=== PATIENT | female | born 1955 | race Caucasian/White ===

== ENCOUNTER 2018-04-17 17:30 | Emergency (ER) | payer OTHER ==
--- NOTE | 2018-04-17 17:36 | EDPHY ---
H & P Time Seen by Provider: 04/17/18 17:35 HPI/ROS: CHIEF COMPLAINT: Left shoulder pain post fall cross country skiing HISTORY OF PRESENT ILLNESS: 62-year-old year female arrives via ambulance, not a trauma activation, complaining of isolated left shoulder pain after she was cross-country skiing, sustained a mechanical fall onto her left shoulder. Pain is reproducible palpation range of motion. No prior history of injury. Denies : Paresthesia, head injury, midline C-spine pain, back pain, chest pain, dyspnea. PRIMARY CARE PROVIDER: REVIEW OF SYSTEMS: 10 systems reviewed and negative with the exception of the elements mentioned in the history of present illness PAST MEDICAL/SURGICAL HISTORY: no anticoagulant use, no relevant medical/ surgical history SOCIAL HISTORY: denies alcohol use at time of incident PHYSICAL EXAM 1) GENERAL: Well-developed, well-nourished, alert and oriented. Appears uncomfortable Answering questions appropriately. 2) HEAD: Normocephalic, atraumatic 3) HEENT: Pupils equal, round, reactive to light bilaterally. Negative Horners. Nasopharynx, oropharynx, clear. No deformity or angulation of nose. No septal hematoma. No rhinorrhea. No oral trauma. Ears bilaterally with normal tympanic membranes. No hemotympanum. No fluid or blood in the external auditory canal. No raccoon eyes. No Lackey sign. Teeth are normally aligned with no gross malocclusion, TMJ bilaterally nontender, facial bones nontender including the zygomatic arch, maxilla mandible. 4) NECK: No cervical collar is on. Posterior cervical spine is nontender, no stepoff, no effusion. Full range of motion which does not elicit any midline cervical spine pain, no posterior midline tenderness, no step-off. Cervical collar is on.Cervical collar is removed while holding inline traction and patient is unable to completely differentiate between true midline pain versus just lateral of midline pain.Cervical collar is replaced at that point.and patient has no complaints of midline cervical pain, no effusion noted, trachea midline, no JVD. 5) LUNGS: Clear to auscultation bilaterally, no wheezes, no rhonchi, no retractions. No obvious signs of trauma. No chest wall pain. No flaring, no grunting. Moving symmetrically. No crepitus. 6) HEART: [Regular rate and rhythm, 7) ABDOMEN: No guarding, no rebound, no focal tenderness, no peritoneal signs, no signs of trauma, no ecchymosis 8) MUSCULOSKELETAL: Left upper extremity: Guarding shoulder, normal anatomic landmarks, tender to palpation proximal humerus and shoulder. Intact skin. No step-off. Soft compartments throughout. Radial ulnar median nerve function intact bilaterally. No axillary nerve dysfunction. Otherwise, Moving all extremities, no focal areas of tenderness, no obvious trauma. 9) BACK: No midline vertebral tenderness, no fluctuance, no step-off, no obvious trauma, no visual or palpable abnormality. 10) SKIN: No laceration. No abrasion DIFFERENTIAL DIAGNOSIS: In no particular order including but not limited to fracture, sprain, strain, dislocation Constitutional: Initial Vital Signs Temperature (C) 36.9 C 04/17/18 17:35 Heart Rate 60 04/17/18 17:35 Respiratory Rate 16 04/17/18 17:35 Blood Pressure 144/81 H 04/17/18 17:35 O2 Sat (%) 96 04/17/18 17:35 O2 Delivery Mode Room Air O2 (L/minute) 2 Allergies/Adverse Reactions: azithromycin Allergy (Verified 04/17/18 17:40) Home Medications: Medication Instructions Recorded Axumin 04/17/18 Hydrocodone/APAP 5/325 [[place] 1 tab PO Q6 PRN #10 tab 04/17/18 5/325 (RX)] Promethazine HCl [Phenergan] 25 mg PO Q6 #10 tab 04/17/18 Rosuvastatin Calcium [Crestor] 04/17/18 MDM/Departure - MDM Medications Given: Discontinued Medications Hydrocodone Bitart/Acetaminophen ([place] 5/325mg Prepack#6) 1 btl TAKEHOME EDNOW ONE Stop: 04/17/18 20:02 Last Admin: 04/17/18 20:05 Dose: 1 btl Haloperidol Lactate (Haldol Injection) 2.5 mg IVP EDNOW ONE Stop: 04/17/18 18:28 Last Admin: 04/17/18 18:36 Dose: 2.5 mg Hydromorphone HCl (Dilaudid) 0.5 mg IVP EDNOW ONE Stop: 04/17/18 17:43 Last Admin: 03/10/19 17:51 Dose: 0.5 mg Sodium Chloride (Ns) 1,000 mls @ 0 mls/hr IV EDNOW ONE; Wide Open PRN Reason: Protocol Stop: 04/17/18 17:57 Last Admin: 04/17/18 17:59 Dose: 1,000 mls Promethazine HCl (Phenergan 25 Mg Prepack #4) 1 btl TAKEHOME EDNOW ONE Stop: 04/17/18 20:06 Last Admin: 04/17/18 20:06 Dose: 1 btl ED Course/Re-evaluation: 6:27 p.m.: Patient has been given a mg of pre-hospital Zofran and fentanyl. She is complaining of continued vomiting at this time after 0.5 mg of Dilaudid. Will administer 2.5 mg of IV Haldol and re-evaluated. She is receiving IV fluids. 7:40 p.m.: Re-evaluation, nausea resolved, pain is controlled. Patient feels comfortable being discharged, feels comfortable following up with an outpatient orthopedic surgeon in her hometown of [place]. She has been given local orthopedic surgery follow-up in [place]. - Depart Disposition: Home, Routine, Self-Care Clinical Impression: [place] skiing Fracture of neck of left humerus Qualifiers: Encounter type: initial encounter Fracture type: closed Qualified Code(s): S42.212A - Unspecified displaced fracture of surgical neck of left humerus, initial encounter for closed fracture Condition: Good Instructions: Hydrocodone/Acetaminophen (By mouth), Promethazine (By mouth), Shoulder Fracture in Children (ED) Additional Instructions: Return to the ER immediately if you experience discoloration, have worsening pain, numbness, tingling, or any other symptoms that concern you. If you received x-rays in the emergency department today, be advised, that ligamentous , tendon, muscular, and other non-bony injury cannot be fully ruled out. Try to keep your affected extremity elevated above the level of your chest, and keep cold packs on the affected area, for the next 48 hours. Prescriptions: Hydrocodone/APAP 5/325 [Rim[place] 5/325 (RX)] 1 tab PO Q6 PRN #10 tab PRN Reason: Pain, Severe Promethazine HCl [Phenergan] 25 mg PO Q6 #10 tab Referrals: Dago Jamison MD [Medical Doctor] - As per Instructions
[2018-04-17] MEDS ORDERED: HYDROmorphONE/DILAUDID 1 MG/ML INJ IVP ONE (17:42)
[2018-04-17] MEDS ORDERED: NS 1,000 ML IV ONE (17:56)
[2018-04-17] MEDS ORDERED: HALOPERIDOL LACT 5 MG/ML INJ IVP ONE (18:27)
[2018-04-17] MEDS ORDERED: HYDROCOD/APAP 5/325 PREPACK#6 BTL TAKEHOME ONE (20:01)
[2018-04-17] MEDS ORDERED: PROMETHAZINE 25 MG PREPACK #4 BTL TAKEHOME ONE ×2 (20:03→20:05)
[2018-04-17 20:15] VITALS: BP 130/80
== END 2018-04-17 20:14 | disposition home or self-care (01) ==
DX: S42.212A Unspecified displaced fracture of surgical neck of left humerus, initial encounter for closed fracture (principal); V00.321A Fall from snow-skis, initial encounter; Y93.23 Activity, snow (alpine) (downhill) skiing, snowboarding, sledding, tobogganing and snow tubing; Y92.828 Other wilderness area as the place of occurrence of the external cause; Y99.9 Unspecified external cause status
CPT/HCPCS: 96374; J1170; J1630